=== PATIENT | female | born 1970 | race Caucasian/White ===

== ENCOUNTER → 2017-12-02 | Outpatient (CLI) | payer OTHER | LOC: M.RAD 09:43 → M.ULTRA 09:43 | DX: Z12.31 Encounter for screening mammogram for malignant neoplasm of breast (principal); N60.01 Solitary cyst of right breast; N60.02 Solitary cyst of left breast ==

== ENCOUNTER → 2017-12-09 | Outpatient (CLI) | payer OTHER ==
--- NOTE | 2017-12-16 10:08 | PATH ---
[address] [address] PATHOLOGY RPT PROCEDURE Name: BARBIE NEWMAN Room: [facility] Rey#: [id number] Admission: 12/09/17 Date of : 74 Discharge: Report #: [id number] Path Case #: [id number] [facility] Accession Number: [id number] . 01 Material submitted: . LEFT BREAST TISSUE . 01 Clinical history: . 0.48 x 0.39 x 0.46 cm mass; 6:00 subareolar . 02 Diagnosis: Mass, left breast, 6:00 subareolar, image-guided core biopsies: - Benign breast tissue with adenosis, negative for atypia. See comment. (WIN:brandon; 12/10/2017) QMS/12/10/2017 . 02 Comment: Reviewed with Dr. Mitul Karimi, who agrees with the diagnosis. . 02 Electronically signed: . Chriss Acosta MD, Pathologist NPI- [id number] . 01 Gross description: . Received in formalin labeled "Barbie Newman, left breast BX, 6:00 SA," are multiple needle cores of yellow-dennison fibrofatty tissue measuring 2.3 x 1.6 x 0.7 cm in aggregate dimensions. The tissue submitted in its entirety in cassette A1 through A3. The cold ischemic time is 8 minutes. The total formalin fixation time is 14 hours and 34 minutes. (TSD; 12/09/2017) TOB/TOB . 02 Pathologist provided ICD-10: N60.22 . 02 CPT . 460749 Specimen Comment: A courtesy copy of this report has been sent to Specimen Comment: [phone]. Specimen Comment: [id number] Specimen Comment: A duplicate report has been generated due to demographic updates. Performed at: [address], [place] [id number] MD Duc Trinidad MD Phone: [phone] Performed at: [address] [place] [address] PATHOLOGY RPT PROCEDURE Name: BARBIE NEWMAN Room: [facility]#: [id number] Admission: 12/09/17 Date of : 74 Discharge: Report #: [id number] Path Case #: [id number] [address] [place] [address], [place], [place] [id number] MD Chriss Acosta MD Phone: [phone]
== END | disposition home or self-care (01) ==
LOC: M.ULTRA 07:26
DX: N63.0 Unspecified lump in unspecified breast (principal); Z98.890 Other specified postprocedural states; Z79.899 Other long term (current) drug therapy; Z88.8 Allergy status to other drugs, medicaments and biological substances

== ENCOUNTER → 2018-02-18 | Outpatient (CLI) | payer OTHER ==
[2018-02-18 08:02] LABS: ABSOLUTE EOSINOPHILS 0.1 thou/uL (0.0-0.7); ABSOLUTE LYMPHOCYTES 1.2 thou/uL (0.8-5.3); ABSOLUTE MONOCYTES 0.2 thou/uL (0.0-1.2); ABSOLUTE NEUTROPHILS 2.6 thou/uL (1.6-8.1); BASOPHILS 1.2 %; EOSINOPHILS 2.8 %; HEMATOCRIT 39.7 % (37.0-47.0); HEMOGLOBIN 13.5 gm/dL (12.0-15.0); LYMPHOCYTES 28.7 %; MCH 29.7 pg (26.0-34.0); MCHC 33.9 g/dL (28.0-37.0); MCV 87.7 fL (80.0-100.0); MONOCYTES 5.2 %; MPV 7.3 fl. (7.2-11.1); NUCLEATED RBCS 0 /100WBC; PLATELET COUNT* 204 thou/uL (150-400); POLYS 62.1 %; RBC 4.53 mil/uL (4.20-5.00); RDW-CV 13.4 % (10.5-14.5); WBC 4.1 thou/uL (4.0-11.0)
[2018-02-18 08:31] LABS: ALBUMIN 3.1 g/dL (3.4-5.0); ALKALINE PHOSPHATASE 51 U/L (46-116); ANION GAP 4 mmol/L (7-16); BUN 12 mg/dL (7-18); CALCIUM 8.1 mg/dL (8.5-10.1); CHLORIDE 105 mmol/L (98-107); CHOLESTEROL 141 mg/dL (<200); CO2 30 mmol/L (21-32); CREATININE 0.8 mg/dL (0.6-1.3); GLUCOSE 89 mg/dL (70-99); HDL CHOLESTEROL 56 mg/dL (>40); LDL CHOLESTEROL 76 mg/dL (<100); POTASSIUM 3.9 mmol/L (3.5-5.1); SERUM ASSESSMENT Clear; SGOT 15 U/L (15-37); SGPT 20 U/L (30-65); SODIUM 139 mmol/L (136-145); TC:HDL 2.5 Ratio (Not establshd); TOTAL BILIRUBIN 0.7 mg/dL (<0.1-1.0); TOTAL PROTEIN 5.8 g/dL (6.4-8.2); TRIGLYCERIDE 46 mg/dL (<150); VLDL 9 mg/dL (<40)
== END ==
LOC: M.LAB 07:35
PROVIDERS: Family Medicine
DX: Z00.00 Encounter for general adult medical examination without abnormal findings (principal)

== ENCOUNTER → 2018-07-12 | Outpatient (CLI) | payer OTHER | LOC: M.RAD 11:44 | DX: R05 Cough (principal) ==

== ENCOUNTER → 2019-03-16 | Outpatient (CLI) | payer OTHER | LOC: M.RAD 09:33 | DX: Z12.31 Encounter for screening mammogram for malignant neoplasm of breast (principal) ==

== ENCOUNTER → 2019-05-17 | Outpatient (CLI) | payer OTHER | LOC: M.ULTRA 11:50 | DX: N60.02 Solitary cyst of left breast (principal); N60.01 Solitary cyst of right breast ==

== ENCOUNTER → 2019-08-08 | Outpatient (CLI) | payer OTHER | LOC: M.LAB 09:41 | DX: Z20.828 Contact with and (suspected) exposure to other viral communicable diseases (principal) ==